=== PATIENT | male | born 1960 | race African-American/Black ===

== ENCOUNTER 2016-10-19 18:10 | Inpatient (IN) | payer MEDICARE, OTHER ==
[~2016-10-19] VITALS: Ht 182.9 cm; Wt 66.7 kg
[~2016-10-19 18:10] MED LIST: ASCO500C16 PO; Acetaminophen PO; BACL20TA PO; Docusate Sodium PO; Gabapentin PO; MAGN400O6 PO; MENT71OI TOP; OMEP20CA10 PO; OXYC30TA2 PO; PIPE3.379 IV; VANC1PLA9 IV; ZINC220C6 PO; Zolpidem Tartrate PO
[2016-10-19] MEDS ORDERED: ONDANSETRON 4 MG/2 ML VIAL IV ONE (18:45)
[2016-10-19] MEDS ORDERED: IV NORMAL SALINE 1000 ML BAG IV ONE (18:45)
[2016-10-19] MEDS ORDERED: HYDROMORPHONE 1 MG/1 ML DISP.SYRIN IV ONE (18:45)
[2016-10-19] MEDS ORDERED: HYDROMORPHONE 2 MG/1 ML DISP.SYRIN ONE ×2 (19:01→23:27)
[2016-10-19] MEDS ORDERED: ONDANSETRON 4 MG/2 ML VIAL ONE (19:01)
[2016-10-19 19:03] LABS: BASOPHILS # (AUTO) 0.1 K/uL (0.0-8.0); BASOPHILS % (AUTO) 0.7 % (0.0-2.0); EOSINOPHILS # (AUTO) 0.3 K/uL (0.0-0.7); EOSINOPHILS % (AUTO) 3.1 % (0.0-7.0); HEMATOCRIT 40.7 % (40-50); HEMOGLOBIN 13.2 G/DL (14.0-18.0); LYMPHOCYTES # (AUTO) 2.2 K/UL (0.8-4.8); LYMPHOCYTES % (AUTO) 26.5 % (20.5-51.5); MEAN CORPUSCULAR HEMOGLOBIN 29.5 UUG (27.0-31.0); MEAN CORPUSCULAR HGB CONC 32 g/dL (32.0-37.0); MEAN CORPUSCULAR VOLUME 91.3 FL (82.0-92.0); MONOCYTES # (AUTO) 0.7 K/UL (0.1-1.30); MONOCYTES % (AUTO) 8.1 % (0.0-11.0); NEUTROPHILS # (AUTO) 4.9 K/UL (1.8-8.9); NEUTROPHILS % (AUTO) 61.6 % (38.5-71.5); PLATELET COUNT (AUTO) 300 K/UL (150-450); RED BLOOD CELL COUNT(AUTO) 4.46 MIL/UL (4.7-6.1); WHITE BLOOD COUNT (AUTO) 8.2 K/UL (4.0-11.2)
--- NOTE | 2016-10-19 19:03 | NUR ---
PT IS IN ROOM #2B. DR WARD EVALUATED THE PT.
[2016-10-19 19:05] LABS: POTASSIUM 3.4 mmol/L (3.5-5.1)
[2016-10-19 19:10] LABS: BILIRUBIN,DIRECT 0.1 mg/dL (0.0-0.2); BILIRUBIN,TOTAL 0.2 mg/dL (0.2-1.0); TOTAL PROTEIN, SERUM 7.9 g/dL (6.4-8.2)
--- NOTE | 2016-10-19 19:10 | NUR ---
Patient c/o being itchy all over body, benadryl given as ordered. Patient will be admitted to m/s. pending lab results.
[2016-10-19] MEDS ORDERED: diphenhydrAMINE 50 MG/1 ML VIAL IV ONE (19:15)
--- NOTE | 2016-10-19 19:18 | NUR ---
Pt. admitted to m/s , under care of Dr. Merida Belongs List completed.
[2016-10-19] MEDS ORDERED: diphenhydrAMINE 50 MG/1 ML VIAL ONE (19:20)
--- NOTE | 2016-10-19 19:22 | NUR ---
patient is wheelchair bound, unable to move lower extremities.
--- NOTE | 2016-10-19 19:25 | NUR ---
Dr. Hernandez aware of lactic acid, not code sepsis per MD. Will monitor patient. No s/s noted at this time. VSS.
--- NOTE | 2016-10-19 19:26 | NUR ---
Dr. Hernandez and primary nurse Festus notified of pt's lactic acid level of 2.2
[2016-10-19] MEDS ORDERED: VANCOMYCIN IV 1,000 MG in IV DEXTROSE 5% 250 ML IV ONE (19:30)
[2016-10-19] MEDS ORDERED: PIPERACILLIN SODIUM/TAZOBACTAM 3.375 G in IV DEXTROSE 5% 50 ML IV ONE (19:30)
[2016-10-19] MEDS ORDERED: VANCOMYCIN 1000 MG VIAL ONE (19:34)
--- NOTE | 2016-10-19 19:52 | NUR ---
patient states that he wants to have a cigarette before getting admitted. explained that it is against policy for patient to go outside and smoke after IV narcotic medication. patient transferred self onto wheelchair and removed IV tubing and whelled himself to the door. spoke to MD that he wants to smoke just one cigarette. I accompanied patient outside to have one cigarette. patient wheeld himself back to room and transferred back to bed. IV medication connected and infusing at this time.
--- NOTE | 2016-10-19 20:09 | NUR ---
Report given to AUDIE Barakat. Patient will be admitted to room 222.
[2016-10-19] MEDS ORDERED: PIPERACILLIN/TAZOBACTAM/D5W 50 ML IV ONE (20:37)
[2016-10-19 21:04] VITALS: BP 163/137
--- NOTE | 2016-10-19 21:30 | NUR ---
RECEIVED PATIENT FROM ER. PATIENT IS AWAKE, ALERT AND ORIENTED X4. WHEELCHAIR BOUND DUE TO PARAPLEGIA FROM MULTIPLE SCLEROSIS PER PATIENT. UPPER EXTREMETIES FULL STRENGTH/MOBILITY AND SENSATION. LOWER EXTREMETIES IS BOTH FLACCID WITH RIGHT LOWER EXTREMITY LIMITED TO NO SENSATION AND LEFT LOWER EXTREMITY SENSATION OK. NO SHORTNESS OF BREATH, NO DISTRESS. LEFT BUTTOCK NOTED WITH 5 CM LENGTH X 2-3 CM WIDTH (SEE PHOTO) WOUND AND ABOUT 1 CM WOUND (SEE PHOTO) CLEANSED WITH NS, PAT DRY, APPLIED HYDROGEL IN GAUZE AND COVERED WITH MEPILEX AND SECURED WITH PAPER TAPE
[2016-10-19] MEDS ORDERED: [UNRECOGNIZED DRUG - OTHER] PO PRN (22:30)
[2016-10-19] MEDS ORDERED: Z GUARD REMEDY PASTE 57 GM TUBE TOP PRN (22:30)
[2016-10-19] MEDS ORDERED: MAGNESIUM HYDROXIDE 30 ML LIQUID UDC PO PRN ×2 (22:30)
[2016-10-19] MEDS ORDERED: Medication Not On Formulary EA ([Acetaminophen] (Tylenol) 650 MG) PO PRN (22:30)
[2016-10-19] MEDS: HYDROMORPHONE 2 MG/1 ML DISP.SYRIN IV PRN (23:18)
[2016-10-20] MEDS ORDERED: PIPERACILLIN/TAZOBACTAM/D5W 50 ML IV ONE (00:16)
[2016-10-20 04:20] VITALS: BP 87/48
[2016-10-20] MEDS ORDERED: HYDROMORPHONE 2 MG/1 ML DISP.SYRIN ONE (04:20)
[2016-10-20] MEDS: HYDROMORPHONE 2 MG/1 ML DISP.SYRIN IV PRN ×4 (04:41→21:12)
[2016-10-20 04:42] VITALS: BP 102/63
[2016-10-20] MEDS ORDERED: Medication Not On Formulary EA ([Gabapentin] (Neurontin) 300 MG) PO SCH (06:00)
[2016-10-20] MEDS ORDERED: Medication Not On Formulary EA (Oxycodone Hcl 30 MG) PO SCH (06:00)
[2016-10-20] MEDS: PIPERACILLIN/TAZOBACTAM/D5W 3.375 G in PREMIXED 1 EACH IV SCH ×3 (06:01→23:34)
[2016-10-20] MEDS ORDERED: ZOLPIDEM 5 MG TABLET PO PRN (07:30)
[2016-10-20 07:46] LABS: BASOPHILS % (AUTO) 0.7 % (0.0-2.0); EOSINOPHILS # (AUTO) 0.3 K/uL (0.0-0.7); EOSINOPHILS % (AUTO) 4.1 % (0.0-7.0); HEMATOCRIT 36.6 % (40-50); HEMOGLOBIN 12.2 G/DL (14.0-18.0); LYMPHOCYTES # (AUTO) 2.6 K/UL (0.8-4.8); LYMPHOCYTES % (AUTO) 40.8 % (20.5-51.5); MEAN CORPUSCULAR HEMOGLOBIN 30.6 UUG (27.0-31.0); MEAN CORPUSCULAR HGB CONC 33 g/dL (32.0-37.0); MEAN CORPUSCULAR VOLUME 91.8 FL (82.0-92.0); MONOCYTES # (AUTO) 0.7 K/UL (0.1-1.30); MONOCYTES % (AUTO) 10.5 % (0.0-11.0); NEUTROPHILS # (AUTO) 2.7 K/UL (1.8-8.9); NEUTROPHILS % (AUTO) 43.9 % (38.5-71.5); PLATELET COUNT (AUTO) 284 K/UL (150-450); RED BLOOD CELL COUNT(AUTO) 3.99 MIL/UL (4.7-6.1); WHITE BLOOD COUNT (AUTO) 6.3 K/UL (4.0-11.2)
[2016-10-20 07:56] LABS: BILIRUBIN,TOTAL 0.2 mg/dL (0.2-1.0); CREATININE 0.9 mg/dL (0.6-1.3); MAGNESIUM 1.8 mg/dL (1.8-2.4); PHOSPHOROUS 3.4 mg/dL (2.5-4.9)
[2016-10-20] MEDS: BACLOFEN 20 MG TABLET PO SCH ×3 (08:15→17:04)
[2016-10-20] MEDS: ASCORBIC ACID 500 MG TABLET PO SCH (08:15)
[2016-10-20] MEDS: ZINC SULFATE 220 MG CAPSULE PO SCH (08:15)
[2016-10-20] MEDS: PANTOPRAZOLE SODIUM 40 MG TABLET.DR PO SCH (08:15)
[2016-10-20] MEDS ORDERED: Medication Not On Formulary EA (Ascorbic Acid (Vitamin C CAPSULE) 500 MG) PO SCH (09:00)
[2016-10-20] MEDS: VANCOMYCIN IV 1 G in PREMIXED 0 EACH IV SCH ×2 (09:19→21:12)
[2016-10-20] MEDS: OXYCODONE HCL 20 MG TAB.SR.12H PO SCH ×3 (10:10→11:05)
[2016-10-20] MEDS ORDERED: OXYC60TA8 PO (10:12)
[2016-10-20 11:04] VITALS: BP 100/55
[2016-10-20] MEDS: NICOTINE 21 MG/24HR PATCH TD SCH (11:30)
[2016-10-20] MEDS: diphenhydrAMINE 50 MG/1 ML VIAL IV PRN (12:57)
--- NOTE | 2016-10-20 13:53 | NUR ---
CLINICAL PHARMACY NOTE: VANCOMYCIN PHARMACY TO DOSE Subjective: To start vancomycin in this 56 yo gentleman for indication of cellulitis Objective: height 182 cm weight 66 kg BUN 12 Scr 0.9 wbc 6.3 temp 98.5 1gm vanco given in ER 10/19 @1932 Assessment/Plan Will start regimen of vancomycin 1gm q13hr for expected trough of 14.68. First dose will be the dose given in ER, second and third doses will be given today at 0830 and 2130, respectively. Trough ordered before 4th scheduled dose, due tomorrow am at 1000. Will check level and readjust as appropriate. Will continue to monitor
[2016-10-20] MEDS: GABAPENTIN 300 MG CAPSULE PO SCH ×2 (14:24→21:12)
[2016-10-20 15:05] VITALS: BP 99/48
--- NOTE | 2016-10-20 16:21 | NUR ---
Patient initially wished to wait on taking oxycodone. Patient however now does not wish to take medication and too much time has passed since scheduled administration. Will return medication to patient. Med not given.
--- NOTE | 2016-10-20 19:35 | NUR ---
PT RECEIVED IN BED, AWAKE. A/OX4. ABLE TO MAKE NEEDS KNOWN. V/S STABLE. NO ACUTE DISTRESS NOTED. PT COMPLAINS OF BUTTOCK PAIN. WILL ADMINISTER PAIN MEDICATION ORDERED. ISOLATION PRECAUTION IN PLACE. SAFETY PRECAUTIONS IMPLEMENTED. WHEEL CHAIR CLOSE TO BEDSIDE. CALL LIGHT WITHIN REACH.
[2016-10-20 20:57] VITALS: BP 94/64
[2016-10-20] MEDS ORDERED: DOCUSATE SODIUM 250 MG CAPSULE PO SCH (21:00)
[2016-10-20] MEDS ORDERED: Medication Not On Formulary EA ([Docusate Sodium] (Colace) 200 MG) PO SCH (21:00)
[2016-10-20] MEDS: DOCUSATE SODIUM 100 MG CAPSULE PO SCH (21:12)
[2016-10-20] MEDS: LACTOBACILLUS RHAMNOSUS GG 1 EACH CAPSULE PO SCH (21:12)
[2016-10-21] MEDS: OXYCODONE HCL 20 MG TAB.SR.12H PO SCH ×3 (00:21→20:34)
[2016-10-21] MEDS: HYDROMORPHONE 2 MG/1 ML DISP.SYRIN IV PRN ×6 (00:56→22:45)
[2016-10-21 04:00] VITALS: BP 97/67
[2016-10-21] MEDS: ACETAMINOPHEN 325 MG TABLET PO PRN ×2 (04:44→04:46)
[2016-10-21] MEDS: PIPERACILLIN/TAZOBACTAM/D5W 3.375 G in PREMIXED 1 EACH IV SCH ×3 (05:02→22:44)
[2016-10-21 06:28] LABS: BASOPHILS % (AUTO) 0.4 % (0.0-2.0); EOSINOPHILS # (AUTO) 0.3 K/uL (0.0-0.7); EOSINOPHILS % (AUTO) 3.2 % (0.0-7.0); HEMATOCRIT 37.3 % (40-50); HEMOGLOBIN 12.5 G/DL (14.0-18.0); LYMPHOCYTES # (AUTO) 1.7 K/UL (0.8-4.8); LYMPHOCYTES % (AUTO) 21.5 % (20.5-51.5); MEAN CORPUSCULAR HEMOGLOBIN 30.7 UUG (27.0-31.0); MEAN CORPUSCULAR HGB CONC 34 g/dL (32.0-37.0); MEAN CORPUSCULAR VOLUME 91.5 FL (82.0-92.0); MONOCYTES # (AUTO) 0.5 K/UL (0.1-1.30); MONOCYTES % (AUTO) 6.3 % (0.0-11.0); NEUTROPHILS # (AUTO) 5.3 K/UL (1.8-8.9); NEUTROPHILS % (AUTO) 68.6 % (38.5-71.5); PLATELET COUNT (AUTO) 275 K/UL (150-450); RED BLOOD CELL COUNT(AUTO) 4.08 MIL/UL (4.7-6.1); WHITE BLOOD COUNT (AUTO) 7.8 K/UL (4.0-11.2)
[2016-10-21 06:38] LABS: CREATININE 0.9 mg/dL (0.6-1.3); MAGNESIUM 1.9 mg/dL (1.8-2.4); PHOSPHOROUS 2.9 mg/dL (2.5-4.9)
--- NOTE | 2016-10-21 06:57 | NUR ---
END OF SHIFT NOTES. PT SLEPT INTERMITTENTLY THROUGHOUT SHIFT. V/S STABLE. NO ACUTE DISTRESS NOTED. PT COMPLAINS OF BUTTOCKS PAIN. PAIN MEDICATION ADMINISTERED ORDERED. NEEDS ATTENDED. SAFETY MAINTAINED. CALL LIGHT WITHIN REACH.
[2016-10-21] MEDS: PANTOPRAZOLE SODIUM 40 MG TABLET.DR PO SCH (07:19)
[2016-10-21] MEDS: GABAPENTIN 300 MG CAPSULE PO SCH ×3 (07:19→22:42)
[2016-10-21] MEDS: BACLOFEN 20 MG TABLET PO SCH ×3 (08:18→18:20)
[2016-10-21] MEDS: ASCORBIC ACID 500 MG TABLET PO SCH (08:18)
[2016-10-21] MEDS: ZINC SULFATE 220 MG CAPSULE PO SCH (08:18)
[2016-10-21] MEDS: LACTOBACILLUS RHAMNOSUS GG 1 EACH CAPSULE PO SCH ×2 (08:18→20:31)
[2016-10-21] MEDS: NICOTINE 21 MG/24HR PATCH TD SCH (09:00)
--- NOTE | 2016-10-21 10:17 | NUR ---
CAP BLOCKER WOUND TREATMENT ORDERS CLARIFIED WITH MANAGER GALLERY. WOUND CARE WILL DEFER CONSULT AND WOUND TREATMENT PLAN TO SURGICAL TEAM AT THIS TIME. PATIENT WITH CURRENT ANDRA AT 17. ALL PRESSURE ULCER PREVENTION MEASURES NOTED TO BE IN PLACE AT THIS TIME.
[2016-10-21] MEDS ORDERED: SODIUM HYPOCHLORITE 0.125% 473 ML BOTTLE TP PRN (10:45)
[2016-10-21 11:16] VITALS: BP 103/58
[2016-10-21] MEDS: BOOST PLUS 237 ML LIQUID (VERY VANILLA) PO SCH ×2 (12:25→17:28)
[2016-10-21] MEDS: VANCOMYCIN IV 1 G in PREMIXED 0 EACH IV SCH ×2 (13:38→22:28)
[2016-10-21] MEDS: SODIUM HYPOCHLORITE 0.125% 473 ML BOTTLE TP SCH (13:39)
[2016-10-21 15:11] VITALS: BP 100/55
--- NOTE | 2016-10-21 15:34 | NUR ---
CLINICAL PHARMACY NOTE: VANCOMYCIN PHARMACY TO DOSE Subjective: To continue vancomycin in this 56 yo gentleman for indication of cellulitis Objective: height 182 cm weight 66 kg BUN 15 Scr 0.9 wbc 7.8 temp 98.1 Trough: 7.6 (today @1010 (drawn late)) Assessment/Plan Readjusted regimen to vancomycin 1gm q9hrs for new expected trough of 14.7. First dose due today at 1230. Trough ordered before 4th scheduled dose, due tomorrow am at 1500. Will check level and readjust as appropriate. Will continue to monitor
--- NOTE | 2016-10-21 16:41 | NUR ---
The patient will be discharged to [facility] [ ; [address] [place] [address]] once medically cleared. The patient chose the facility and is going to be there for short term rehab. Harmony from [facility] confirmed that they will be able to admit him once stable. CM/SW will follow-up.
--- NOTE | 2016-10-21 19:40 | NUR ---
PT RECEIVED IN BED, AWAKE. A/OX4. ABLE TO MAKE NEEDS KNOWN. V/S STABLE. NO ACUTE DISTRESS NOTED. PT STATES PAIN 6/10 AT THIS TIME. ISOLATION CONTINUED PRECAUTION. WOUND CULTURE LAB RESULTS PENDING. SAFETY MEASURES IMPLEMENTED. CALL LIGHT WITHIN REACH.
[2016-10-21 20:00] VITALS: BP 91/57
[2016-10-21] MEDS: DOCUSATE SODIUM 100 MG CAPSULE PO SCH (20:31)
[2016-10-22] MEDS: HYDROMORPHONE 2 MG/1 ML DISP.SYRIN IV PRN ×4 (04:12→20:15)
[2016-10-22 05:00] VITALS: BP 105/65
[2016-10-22] MEDS: VANCOMYCIN IV 1 G in PREMIXED 0 EACH IV SCH ×2 (05:49→17:36)
--- NOTE | 2016-10-22 06:40 | NUR ---
END OF SHIFT NOTES. PT SLEPT INTERMITTENTLY THROUGHOUT SHIFT. A/OX4. NEEDS ATTENDED. V/S STABLE. NO ACUTE DISTRESS NOTED. PAIN MANAGED. ISOLATION MAINTAINED. SAFETY MAINTAINED. CALL LIGHT WITHIN REACH.
[2016-10-22] MEDS: PANTOPRAZOLE SODIUM 40 MG TABLET.DR PO SCH (06:54)
[2016-10-22] MEDS: GABAPENTIN 300 MG CAPSULE PO SCH ×3 (06:54→22:25)
[2016-10-22] MEDS: PIPERACILLIN/TAZOBACTAM/D5W 3.375 G in PREMIXED 1 EACH IV SCH ×3 (06:54→22:24)
[2016-10-22] MEDS: BOOST PLUS 237 ML LIQUID (VERY VANILLA) PO SCH ×2 (08:51→17:36)
[2016-10-22] MEDS: OXYCODONE HCL 20 MG TAB.SR.12H PO SCH ×2 (08:52→22:24)
[2016-10-22] MEDS: NICOTINE 21 MG/24HR PATCH TD SCH ×2 (08:52→18:16)
[2016-10-22] MEDS: ZINC SULFATE 220 MG CAPSULE PO SCH (08:52)
[2016-10-22] MEDS: ASCORBIC ACID 500 MG TABLET PO SCH (08:52)
[2016-10-22] MEDS: BACLOFEN 20 MG TABLET PO SCH ×3 (08:52→17:36)
[2016-10-22] MEDS: SODIUM HYPOCHLORITE 0.125% 473 ML BOTTLE TP SCH (08:53)
[2016-10-22] MEDS ORDERED: PIPE3.379 IV (10:23)
[2016-10-22] MEDS ORDERED: ACID1TAB4 PO (10:23)
[2016-10-22] MEDS ORDERED: MULT1TAB73 PO (10:23)
[2016-10-22] MEDS ORDERED: DIPH25CA83 PO (10:23)
[2016-10-22] MEDS ORDERED: LACT-15 PO (10:23)
[2016-10-22] MEDS ORDERED: RXVAN IV (10:23)
[2016-10-22] MEDS ORDERED: SODI473S8 TP ×2 (10:23)
[2016-10-22] MEDS: LACTOBACILLUS RHAMNOSUS GG 1 EACH CAPSULE PO SCH ×2 (10:45→20:15)
[2016-10-22 11:06] VITALS: BP 105/69
--- NOTE | 2016-10-22 14:46 | NUR ---
Patient is requesting to take medications later. Sleeping at this time. Will give when patient wakes up. Patient requested not to be disturbed.
[2016-10-22 15:17] VITALS: BP 104/68
--- NOTE | 2016-10-22 15:47 | NUR ---
CLINICAL PHARMACY NOTE: VANCOMYCIN PHARMACY TO DOSE Subjective: To continue vancomycin in this 56 yo gentleman for indication of cellulitis Objective: height 182 cm weight 66 kg BUN 15 (8/) Scr 0.9(8/) wbc 7.8 (8/) temp 98.2 ) Assessment/Plan Continue vancomycin 1gm q9hrs for new expected trough of 14.7. Third dose given today at 0549. Trough ordered before 4th scheduled dose, due today at 1500. Will check level and readjust as appropriate. Will continue to monitor Addendum: 10/22/16 at 1639 by LEROY ESCALERA VANCOMYCIN TROUGH 12.1, WILL INCREASE DOSE TO 1 GRAM EVERY 8HRS(FIRST DOSE AT 1630) AND DRAW TROUGH BY 4TH DOSE(ORDERED FOR TOMORROW AT 1600).
[2016-10-22 20:31] VITALS: BP 100/61
[2016-10-22] MEDS: DOCUSATE SODIUM 100 MG CAPSULE PO SCH (20:35)
[2016-10-23] MEDS: VANCOMYCIN IV 1 G in PREMIXED 0 EACH IV SCH ×3 (00:25→17:04)
[2016-10-23] MEDS: HYDROMORPHONE 2 MG/1 ML DISP.SYRIN IV PRN ×5 (00:25→21:29)
[2016-10-23] MEDS: diphenhydrAMINE 50 MG/1 ML VIAL IV PRN (00:38)
[2016-10-23] MEDS: GABAPENTIN 300 MG CAPSULE PO SCH ×3 (05:01→21:30)
[2016-10-23] MEDS: PIPERACILLIN/TAZOBACTAM/D5W 3.375 G in PREMIXED 1 EACH IV SCH ×3 (05:01→21:29)
[2016-10-23 05:35] VITALS: BP 99/68
--- NOTE | 2016-10-23 05:35 | NUR ---
PT'S IV SITE INFILTRATED. IV ZOSYN STILL RUNNING WITH 20ML LEFT TO INFUSE. PT REFUSED TO HAVE IV REINSERTED AND COMPLETE REMAINING ZOSYN IVPB. THIRD TIME IV SITE NOTED TO BE INFILTRATED DUE TO PATIENT CONSTANTLY MOVING/TRANSFERRING FROM BED TO WHEELCHAIR. PT STATED "I DON'T WANT TO BE POKED AGAIN AND THEN MY VEINS NOT WORKING, AND THEN GET REPOKED AGAIN. I'LL TAKE MY IV AT 9 O'CLOCK". DISCUSSED WITH PATIENT REGARDING RISKS/BENEFITS OF COMPLETING ANTIBIOTIC TREATMENT, PT VERBALIZED UNDERSTANDING. WILL ENDORSE TO THE DAY SHIFT RN.
--- NOTE | 2016-10-23 06:06 | NUR ---
PT SLEPT INTERMITTENTLY, IN NO ACUTE DISTRESS. PT GETS OUT OF BED FREQUENTLY, TRANSFERS TO WHEELCHAIR INDEPENDENTLY. PT'S IV PULLED OUT SEVERAL TIMES DURING THE SHIFT DUE TO PT CONSTANTLY MOVING/TRANSFERRING FROM BED TO WHEELCHAIR. DISCUSSED TO PATIENT REGARDING SAFETY MEASURES AND FALL RISK, PT VERBALIZED UNDERSTANDING. IV ANTIBIOTICS ADMINISTERED ORDERED, NO ADVERSE REACTION NOTED. PAIN MANAGEMENT ORDERED. CALL LIGHT WITHIN REACH, WILL CONTINUE TO MONITOR.
[2016-10-23] MEDS: PANTOPRAZOLE SODIUM 40 MG TABLET.DR PO SCH (06:31)
[2016-10-23] MEDS: BOOST PLUS 237 ML LIQUID (VERY VANILLA) PO SCH ×2 (08:22→17:05)
[2016-10-23] MEDS: ASCORBIC ACID 500 MG TABLET PO SCH (09:33)
[2016-10-23] MEDS: LACTOBACILLUS RHAMNOSUS GG 1 EACH CAPSULE PO SCH ×2 (09:33→20:09)
[2016-10-23] MEDS: ZINC SULFATE 220 MG CAPSULE PO SCH (09:33)
[2016-10-23] MEDS: BACLOFEN 20 MG TABLET PO SCH ×3 (09:33→17:04)
[2016-10-23] MEDS: SODIUM HYPOCHLORITE 0.125% 473 ML BOTTLE TP SCH (09:34)
--- NOTE | 2016-10-23 11:08 | NUR ---
PT REFUSED TO HAVE MORNING OXYCODONE "I WANT TO HAVE DILAUDID IV NOW, I WILL HAVE OXYCODONE LATER ON"
[2016-10-23 12:10] VITALS: BP 92/60
[2016-10-23 13:47] VITALS: BP 103/59
--- NOTE | 2016-10-23 15:28 | NUR ---
PER DR. WOLF LEDEZMA TO GIVE MORNING OXYCODONE TO THE PT.
[2016-10-23] MEDS: OXYCODONE HCL 20 MG TAB.SR.12H PO SCH ×2 (15:31→21:00)
--- NOTE | 2016-10-23 17:00 | NUR ---
CLINICAL PHARMACY NOTE: VANCOMYCIN PHARMACY TO DOSE Subjective: To continue vancomycin in this 56 yo gentleman for indication of cellulitis Objective: height 182 cm weight 66 kg BUN 15 (8/4) Scr 0.9(8/4) wbc 7.8 (8/4) temp 98.2 Vanco trough level: 18 Assessment/Plan Since vancomycin trough level is within therapeutic range of 15-20 mcg/ml, will continue the same dose of vancomycin 1gm IVPB q9hrs for today. Plan to repeat level within a couple of days if needed to ensure proper therapeutic level. Will continue to monitor
[2016-10-23 17:32] VITALS: BP 110/59
--- NOTE | 2016-10-23 18:37 | NUR ---
WOUND CARE IS REFUSED BY THE PT "I NEED TO GO, THEY CAN DO IT LATER"
--- NOTE | 2016-10-23 19:05 | NUR ---
PT IS LAYING IN BED COMFORTABLY. NO PAIN NOTED. ALL SAFETY NEEDS ARE MET. PT REMOVED HIS IV. NO S/S OF BLEEDING. NO S/S OF RESPIRATORY DISTRESS NOTED. WOUND CARE WAS REFUSED BY THE PT, ADVISED THE NOC NURSE. ALL SAFETY NEEDS ARE MET.
--- NOTE | 2016-10-23 19:30 | NUR ---
RECEIVED PATIENT LAYING COMFORTABLY IN BED. HOB ELEVATED. A&O X'S 4. NO ACUTE DISTRESS NOTED. NOTED LOWER EXTREMITIES SEVERE WEAKNESS. PARAPLEGIC. NO IV SITE. WILL ATTEMPT TO RESTART AN IV. SAFETY INITIATED. CALL LIGHT WITHIN REACH. WILL CONTINUE TO MONITOR.
[2016-10-23 20:00] VITALS: BP_SYST 100; BP_SYST 94; BP_DIAS 67; BP_DIAS 74
[2016-10-23] MEDS: DOCUSATE SODIUM 100 MG CAPSULE PO SCH (20:09)
[2016-10-23 20:30] VITALS: BP 100/74
[2016-10-24] MEDS: VANCOMYCIN IV 1 G in PREMIXED 0 EACH IV SCH ×2 (01:48→09:03)
--- NOTE | 2016-10-24 02:00 | NUR ---
APPLIED HYDROGEL AND MEPILEX ON PATIENT'S LEFT BUTTOCK SKIN TEAR.
[2016-10-24] MEDS: HYDROMORPHONE 2 MG/1 ML DISP.SYRIN IV PRN ×4 (02:10→14:25)
[2016-10-24 05:13] VITALS: BP 97/60
[2016-10-24] MEDS: PIPERACILLIN/TAZOBACTAM/D5W 3.375 G in PREMIXED 1 EACH IV SCH ×2 (05:39→13:33)
[2016-10-24] MEDS: GABAPENTIN 300 MG CAPSULE PO SCH ×2 (06:11→13:20)
[2016-10-24] MEDS: PANTOPRAZOLE SODIUM 40 MG TABLET.DR PO SCH (06:11)
--- NOTE | 2016-10-24 06:33 | NUR ---
PATIENT SLEPT INTERMITTENTLY T/O SHIFT. NO ACUTE DISTRESS NOTED. COMFORT AND SAFETY MAINTAINED T/O SHIFT. PATIENT IS WHEELCHAIR BOUND.GOES DOWNSTAIRS TO SMOKE.FREQUENTLY ASKS FOR PAIN MED. MEDS GIVEN. STATED RELIEF.ALL NEEDS MET. WOUND CARE PROVIDED TODAY.
[2016-10-24] MEDS: BOOST PLUS 237 ML LIQUID (VERY VANILLA) PO SCH (08:38)
[2016-10-24] MEDS: LACTOBACILLUS RHAMNOSUS GG 1 EACH CAPSULE PO SCH (09:02)
[2016-10-24] MEDS: BACLOFEN 20 MG TABLET PO SCH ×2 (09:02→13:20)
[2016-10-24] MEDS: ASCORBIC ACID 500 MG TABLET PO SCH (09:02)
[2016-10-24] MEDS: ZINC SULFATE 220 MG CAPSULE PO SCH (09:02)
[2016-10-24] MEDS: OXYCODONE HCL 20 MG TAB.SR.12H PO SCH (09:02)
[2016-10-24] MEDS: NICOTINE 21 MG/24HR PATCH TD SCH (09:03)
[2016-10-24] MEDS: SODIUM HYPOCHLORITE 0.125% 473 ML BOTTLE TP SCH (09:04)
[2016-10-24 10:41] VITALS: BP 123/72
[2016-10-24] MEDS: diphenhydrAMINE 50 MG/1 ML VIAL IV PRN (10:45)
--- NOTE | 2016-10-24 12:15 | NUR ---
THIS RECORDER SPOKE WITH AUNDREA DATA SECURITY ANALYST AT [facility], , STATES THEY WILL ACCEPT SOHAM EVELYN BACK TO THERE FACILITY
--- NOTE | 2016-10-24 12:22 | NUR ---
PER PT "I HAD BOWEL MOVEMENT YESTERDAY". ADVISED THE FACILITY
[2016-10-24 12:33] VITALS: BP 120/72
--- NOTE | 2016-10-24 13:47 | NUR ---
WOUND CARE IS DONE, PICTURES TAKEN ONLY OF THE LEFT BUTTOCK. PER PT "THE REST IS ONLY SCARS, ITS HEALED ALREADY". PT REFUSED TO TAKE PICTURES OF THE REST WOUNDS. PER DR. WOLF LEDEZMA TO GIVE PAIN MEDICATION 1.5MG DILAUDID IV "BEFORE PT LEAVES" VIA AMBULANCE.
--- NOTE | 2016-10-24 14:37 | NUR ---
ADMINISTERED PAIN MEDICATIONS TO THE PT "OK" PER DR. BLOOM TO GIVE DILAUDID 1.5MG. ADMINISTERED AT 1425. DISCHARGE NOTE: PT IS READY TO BE D/C, IV IS LEFT DUE TO PT CONTINUING IV MEDS AT THE FACILITY. REPORT IS GIVEN TO AN. NO S/S OF RESPIRATORY DISTRESS NOTED. NO S/S OF BLEEDING. V/A WNL.
== END 2016-10-24 14:30 | DRG 579 ==
LOC: ER 18:11 → MED 20:31
PROVIDERS: ADMIT Internal Medicine; ATTEND Internal Medicine
PROC: 0KBP0ZZ Excision of Left Hip Muscle, Open Approach (ICD-10-PCS; principal; 2016-10-21)
DX: L89.324 Pressure ulcer of left buttock, stage 4 (principal); E43 Unspecified severe protein-calorie malnutrition; E87.2 Acidosis; Z68.1 Body mass index [BMI] 19.9 or less, adult; F11.20 Opioid dependence, uncomplicated; G82.20 Paraplegia, unspecified; D68.59 Other primary thrombophilia; L08.9 Local infection of the skin and subcutaneous tissue, unspecified; G35 Multiple sclerosis; F12.90 Cannabis use, unspecified, uncomplicated; F17.210 Nicotine dependence, cigarettes, uncomplicated; D63.8 Anemia in other chronic diseases classified elsewhere; G89.4 Chronic pain syndrome; M19.012 Primary osteoarthritis, left shoulder; M19.011 Primary osteoarthritis, right shoulder; G40.909 Epilepsy, unspecified, not intractable, without status epilepticus; L89.319 Pressure ulcer of right buttock, unspecified stage; Z86.14 Personal history of Methicillin resistant Staphylococcus aureus infection; Z87.440 Personal history of urinary (tract) infections; N31.9 Neuromuscular dysfunction of bladder, unspecified; Z99.3 Dependence on wheelchair; Z79.899 Other long term (current) drug therapy; M19.90 Unspecified osteoarthritis, unspecified site; Z98.890 Other specified postprocedural states
CPT/HCPCS: 36415; 71010; 83605; 83690; 83735; 84100; 85025; 85651; 86140; 87040; 87070; 93005; 97110; 97161; A4217; A4663; J1170; J1200; J2405; J2543; J3370; J7040; J7060

== ENCOUNTER 2018-01-22 15:26 | Inpatient (IN) | payer MEDICARE, OTHER ==
[~2018-01-22] VITALS: Ht 185.4 cm; Wt 67.7 kg
[~2018-01-22 15:26] MED LIST changes: +ACID1TAB4 PO; +DIPH25CA83 PO; +LACT-15 PO; +MULT1TAB73 PO; -OXYC30TA2 PO; +OXYC60TA8 PO; +RXVAN IV; +SODI473S8 TP; -VANC1PLA9 IV
[2018-01-22] MEDS ORDERED: HYDR2TAB4 PO (17:38)
[2018-01-22] MEDS ORDERED: ENSURE PLUS (17:38)
[2018-01-22] MEDS ORDERED: OXYC30TA2 PO (17:38)
[2018-01-22] MEDS ORDERED: BACL20TA PO (17:38)
[2018-01-22] MEDS ORDERED: GABA300C PO (17:38)
[2018-01-22] MEDS ORDERED: PIPERACILLIN/TAZOBACTAM/D5W 50 ML IV ONE (17:45)
[2018-01-22] MEDS ORDERED: VANCOMYCIN IV 1,000 MG in IV DEXTROSE 5% 250 ML IV ONE (17:45)
[2018-01-22] MEDS ORDERED: PIPERACILLIN SODIUM/TAZOBACTAM 3.375 G in IV DEXTROSE 5% 50 ML IV ONE (17:45)
[2018-01-22] MEDS ORDERED: VANCOMYCIN IV 200 ML ONE (17:45)
[2018-01-22 17:54] LABS: BASOPHILS % (AUTO) 0.7 % (0.0-2.0); EOSINOPHILS # (AUTO) 0.2 K/uL (0.0-0.7); EOSINOPHILS % (AUTO) 4.1 % (0.0-7.0); HEMATOCRIT 41.3 % (36.7-47.1); HEMOGLOBIN 14.1 g/dL (12.5-16.3); MEAN CORPUSCULAR HEMOGLOBIN 32.9 uug (23.8-33.4); MEAN CORPUSCULAR HGB CONC 34 g/dL (32.5-36.3); MEAN CORPUSCULAR VOLUME 96.6 fL (73.0-96.2); MONOCYTES # (AUTO) 0.4 K/uL (2.0-10.0); MONOCYTES % (AUTO) 6.1 % (0.0-11.0); NEUTROPHILS # (AUTO) 3.4 K/uL (1.8-8.9); NEUTROPHILS % (AUTO) 56.1 % (38.5-71.5); PLATELET COUNT (AUTO) 250 K/uL (152-348); RED BLOOD CELL COUNT(AUTO) 4.28 MIL/uL (4.06-5.63)
[2018-01-22 18:10] LABS: ALANINE AMINOTRANSFERASE 18 U/L (16-63); ALKALINE PHOSPHATASE 120 U/L (50-136); ASPARTATE AMINOTRANSFERASE 11 U/L (15-37); BILIRUBIN,DIRECT < 0.1 mg/dL (0.0-0.2); BILIRUBIN,TOTAL 0.2 mg/dL (0.2-1.0); CARBON DIOXIDE 27 mmol/L (21-32); CHLORIDE 107 mmol/L (98-107); CREATININE 0.9 mg/dL (0.6-1.3); GLUCOSE 103 mg/dL (74-106); POTASSIUM 3.8 mmol/L (3.5-5.1); TOTAL PROTEIN, SERUM 7.7 g/dL (6.4-8.2); UREA NITROGEN, BLOOD 15 mg/dL (7-18)
--- NOTE | 2018-01-22 19:08 | NUR ---
RECEIVED SHIFT REPORT FROM AUDIE MENJIVAR. RECEIVED PT SITTING IN W/C. VSS, PT C/O SACRAL WOUND PAIN. PT DENIES C/P, SOB, N/V/D, HEADACHE, DIZZINESS.
[2018-01-22] MEDS ORDERED: HYDROMORPHONE 1 MG/1 ML DISP.SYRIN ONE (19:14)
[2018-01-22] MEDS ORDERED: ONDANSETRON 4 MG/2 ML VIAL ONE (19:14)
[2018-01-22] MEDS ORDERED: ONDANSETRON 4 MG/2 ML VIAL IV ONE (19:15)
[2018-01-22] MEDS ORDERED: HYDROMORPHONE 1 MG/1 ML DISP.SYRIN IV ONE (19:15)
--- NOTE | 2018-01-22 20:00 | NUR ---
Pt. admitted to M/S, under care of Dr. CHAVEZ. Belongs List completed.
--- NOTE | 2018-01-22 20:20 | NUR ---
IN FROM ER VIA WHEELCHAIR, ADMITTED 57 YEAR OLD MALE WITH ADMITTING DX OF INFECTED WOUND. AAOX4, NO SIGNS OF ACUTE DISTRESS NOTED AT THIS TIME. IV SITE, PATENT AND INTACT. ROUTINE ADMISSION DONE. PLAN OF CARE INITIATED. SAFETY MEASURES INITIATED, PT BELONGINGS AND CALL WOLFF WITHIN REACH. Addendum: 01/23/18 at 0211 by ERIKA FRASER RN PT VERBALIZED SMOKING DEPENDENCY, EDUCATION ON SMOKING CESSATION GIVEN, VERBALIZED UNDERSTANDING. MADE AWARE, ORDER RECEIVED OF NICOTINE PATCH 14MG Q DAILY. ORDER READ BACK AND CARRIED OUT.
[2018-01-22] MEDS ORDERED: THERAHONEY GEL 1.5 OZ TUBE TOP PRN (20:45)
[2018-01-22] MEDS ORDERED: Medication Not On Formulary EA ([Acetaminophen] 650 MG) PO PRN (20:45)
[2018-01-22] MEDS ORDERED: MAGNESIUM HYDROXIDE 30 ML LIQUID UDC PO PRN (20:45)
[2018-01-22] MEDS ORDERED: GABAPENTIN 300 MG CAPSULE PO PRN (20:45)
[2018-01-22] MEDS ORDERED: ZOLPIDEM TARTRATE 5 MG PO PRN (20:45)
[2018-01-22] MEDS ORDERED: ONDANSETRON 4 MG/2 ML VIAL IV PRN (21:00)
[2018-01-22] MEDS ORDERED: DOCUSATE SODIUM 200 MG PO SCH (21:00)
[2018-01-22] MEDS ORDERED: ZOLPIDEM 5 MG TABLET PO PRN (21:00)
[2018-01-22] MEDS ORDERED: Z GUARD REMEDY PASTE 57 GM TUBE TOP PRN (21:00)
[2018-01-22] MEDS ORDERED: ACETAMINOPHEN 325 MG TABLET PO PRN (21:00)
[2018-01-22] MEDS: IV NS 1000 ML 1,000 ML IV PRN (21:13)
[2018-01-22] MEDS: DOCUSATE SODIUM 100 MG CAPSULE PO SCH (21:40)
[2018-01-23 04:00] VITALS: BP 112/67
[2018-01-23] MEDS: HYDROMORPHONE 2 MG/1 ML DISP.SYRIN IV PRN ×5 (04:35→20:52)
[2018-01-23] MEDS ORDERED: PIPERACILLIN/TAZOBACTAM/D5W 50 ML IV ONE (05:24)
[2018-01-23] MEDS ORDERED: PIPERACILLIN/TAZOBACTAM/D5W 3.375 G in PREMIXED 1 EACH IV SCH (06:00)
[2018-01-23] MEDS ORDERED: VANCOMYCIN IV 200 ML IV SCH (06:00)
[2018-01-23] MEDS: PANTOPRAZOLE SODIUM 40 MG TABLET.DR PO SCH (06:23)
[2018-01-23 06:50] LABS: BASOPHILS % (AUTO) 0.6 % (0.0-2.0); EOSINOPHILS % (AUTO) 4.1 % (0.0-7.0); HEMATOCRIT 37.4 % (36.7-47.1); HEMOGLOBIN 12.8 g/dL (12.5-16.3); LYMPHOCYTES % (AUTO) 40.6 % (20.5-51.5); MEAN CORPUSCULAR HEMOGLOBIN 33.1 uug (23.8-33.4); MEAN CORPUSCULAR HGB CONC 34 g/dL (32.5-36.3); NEUTROPHILS % (AUTO) 44.7 % (38.5-71.5); PLATELET COUNT (AUTO) 221 K/uL (152-348); RED BLOOD CELL COUNT(AUTO) 3.86 MIL/uL (4.06-5.63); WHITE BLOOD COUNT (AUTO) 5.4 K/uL (3.6-10.2)
--- NOTE | 2018-01-23 06:50 | NUR ---
PT RESTING COMFORTABLY ON BED. NO SIGNS OF DISCOMFORT AT THIS TIME. IV SITE ON RFA, PATENT AND INTACT. EDUCATED PT ON FREQUENT REPOSITIONING FOR SKIN CARE. ALL NEEDS ATTENDED AND MET. SAFE ENVIRONMENT MAINTAINED AT ALL TIMES, CALL WOLFF WITHIN REACH
[2018-01-23 06:51] LABS: EOSINOPHILS # (AUTO) 0.2 K/uL (0.0-0.7); LYMPHOCYTES # (AUTO) 2.2 K/uL (20.0-40.0); MONOCYTES # (AUTO) 0.5 K/uL (2.0-10.0); NEUTROPHILS # (AUTO) 2.4 K/uL (1.8-8.9)
[2018-01-23 07:50] LABS: BILIRUBIN,TOTAL 0.2 mg/dL (0.2-1.0); CREATININE 0.9 mg/dL (0.6-1.3); MAGNESIUM 1.7 mg/dL (1.8-2.4); PHOSPHOROUS 3.3 mg/dL (2.5-4.9); POTASSIUM 4.3 mmol/L (3.5-5.1); TOTAL PROTEIN, SERUM 6.8 g/dL (6.4-8.2)
[2018-01-23] MEDS: ENSURE ENLIVE (VAN) 240 ML LIQUID PO SCH ×2 (08:00→17:00)
--- NOTE | 2018-01-23 08:00 | NUR ---
awake alert cooperate well no sob or pain ON FALL PRECAUTION BED ALARM ON AND CALL LIGHT IN REACH
[2018-01-23] MEDS: BACLOFEN 20 MG TABLET PO SCH ×3 (08:24→17:18)
[2018-01-23] MEDS: ACIDOPHILUS/BULGARICUS CHEW TAB PO SCH ×2 (08:24→20:51)
[2018-01-23] MEDS: ASCORBIC ACID 500 MG TABLET PO SCH (08:24)
[2018-01-23] MEDS: MULTIVITAMINS,THERAPEUTIC TABLET PO SCH (08:24)
[2018-01-23] MEDS: ZINC SULFATE 220 MG CAPSULE PO SCH (08:24)
[2018-01-23] MEDS: NICOTINE 14 MG/24HR PATCH TD SCH (08:24)
--- NOTE | 2018-01-23 08:42 | NUR ---
CLINICAL PHARMACY NOTE-VANCOMYCIN DOSING PER PHARMACY S: To start vancomycin dosing on this patient for recurrent cellulitis(also on zosyn) O: BUN/scr 14/0.9 WBC 5.4 Temp 98.1 Ht 185.42cm Wt 67.73kg A/P: Patient had 1 gram in ER last night at 1745. Will continue 1 gram every 8hrs (first dose today at 1000) and draw trough by 4th dose(not ordered yet, estimated trough around 18 based on last admission result). Will follow daily. Addendum: 01/23/18 at 1244 by LEROY MAYERS ADM TROUGH IS ON ORDER FOR TOMORROW AT 0930 BEFORE 4TH DOSE.
[2018-01-23] MEDS ORDERED: Medication Not On Formulary EA (Ascorbic Acid (Vitamin C CAPSULE) 500 MG) PO SCH (09:00)
[2018-01-23] MEDS ORDERED: Medication Not On Formulary EA (Multivitamins (Multivitamin) 1 EACH) PO SCH (09:00)
--- NOTE | 2018-01-23 09:00 | NUR ---
TO S RAY FOR CT PELVIS W/O CONTRAST VIA W/C
--- NOTE | 2018-01-23 09:30 | NUR ---
BACK TO ROOM RESTING STATE PAIN MED HELP TO RELIEF PAIN
[2018-01-23] MEDS: VANCOMYCIN IV 1 G in PREMIXED 0 EACH IV SCH ×2 (10:30→18:24)
[2018-01-23 11:21] VITALS: BP 117/62
--- NOTE | 2018-01-23 12:41 | NUR ---
WOUND CARE CONSULT: PT PRESENTS WITH STAGE 4 ULCER TO LEFT BUTTOCK WITH SURROUNDING SCAR, RT BUTTOCK SCAR AND SACRAL SCAR, PRESENT ON ADMISSION. PT ON FIRST STEP [facility]. ALL SKIN PROTECTION AND WOUND CARE RECOMMENDATIONS DISCUSSED WITH NURSING STAFF. RECOMMEND SURGICAL CONSULT. WILL SEE PRN. GOLDMAN IN AGREEMENT WITH PLAN OF CARE. Addendum: 01/23/18 at 1244 by REHAN ALANIS RN Amended: Links added.
[2018-01-23 15:23] VITALS: BP 105/66
[2018-01-23] MEDS: PIPERACILLIN/TAZOBACTAM/D5W 3.375 G in PREMIXED 1 EACH IV SCH ×2 (15:23→22:21)
[2018-01-23] MEDS: diphenhydrAMINE 25 MG CAP PO PRN (15:23)
[2018-01-23] MEDS: MAGNESIUM SULFATE/D5W 100 ML IV SCH ×2 (15:24→17:18)
--- NOTE | 2018-01-23 17:30 | NUR ---
STABLE HEMODYNAMIC STATUS PAIN UNDER CONTROL SAFETY MEASURE PROVIDED CALL LIGHT IN REACH
--- NOTE | 2018-01-23 20:00 | NUR ---
Pt noted to be AAO x 3, independent, no s/s of acute distress. Pt made aware of plan of care. Safe environment implemented. Call light within reach.
[2018-01-23 20:24] VITALS: BP 111/73
[2018-01-23] MEDS: DOCUSATE SODIUM 100 MG CAPSULE PO SCH (20:50)
[2018-01-23] MEDS: IV NS 1000 ML 1,000 ML IV PRN (20:55)
[2018-01-24] MEDS: HYDROMORPHONE 2 MG/1 ML DISP.SYRIN IV PRN ×5 (02:02→20:18)
[2018-01-24] MEDS: VANCOMYCIN IV 1 G in PREMIXED 0 EACH IV SCH ×3 (02:03→18:10)
[2018-01-24 05:43] VITALS: BP 130/65
[2018-01-24] MEDS: PIPERACILLIN/TAZOBACTAM/D5W 3.375 G in PREMIXED 1 EACH IV SCH ×3 (06:19→21:23)
[2018-01-24] MEDS: PANTOPRAZOLE SODIUM 40 MG TABLET.DR PO SCH (06:19)
--- NOTE | 2018-01-24 06:42 | NUR ---
Pt refused to have wound pictures taken. No s/s of acute distress noted at this time. Pain management provided as ordered. Safe environment implemented.
[2018-01-24] MEDS: ENSURE ENLIVE (VAN) 240 ML LIQUID PO SCH ×2 (08:00→17:29)
--- NOTE | 2018-01-24 08:00 | NUR ---
AWAKE ALERT ORTX4 COOPERATE WELL NO PAIN OR SOB CALL LIGHT WITHIN REACH
[2018-01-24 08:41] LABS: CREATININE 0.9 mg/dL (0.6-1.3); MAGNESIUM 2.3 mg/dL (1.8-2.4); POTASSIUM 4.3 mmol/L (3.5-5.1)
[2018-01-24] MEDS: ACIDOPHILUS/BULGARICUS CHEW TAB PO SCH ×3 (09:00→20:17)
[2018-01-24] MEDS: BACLOFEN 20 MG TABLET PO SCH ×3 (09:23→17:12)
[2018-01-24] MEDS: MULTIVITAMINS,THERAPEUTIC TABLET PO SCH (09:25)
[2018-01-24] MEDS: NICOTINE 14 MG/24HR PATCH TD SCH (09:25)
[2018-01-24] MEDS: ZINC SULFATE 220 MG CAPSULE PO SCH (09:25)
[2018-01-24] MEDS: ASCORBIC ACID 500 MG TABLET PO SCH (09:25)
--- NOTE | 2018-01-24 10:00 | NUR ---
REFUSED TO HAVE DSG CHANGE AT LEFT BUTTOCK
[2018-01-24] MEDS: diphenhydrAMINE 25 MG CAP PO PRN (10:57)
--- NOTE | 2018-01-24 11:11 | NUR ---
CLINICAL PHARMACY NOTE-VANCOMYCIN DOSING PER PHARMACY S: To continue vancomycin dosing on this patient for recurrent cellulitis(also on zosyn) O: BUN/scr 10/0.9 WBC 5.4 (01/23) Temp 98 Ht 185.42cm Wt 67.73kg Trough today at 0930 15.2 A/P: As trough is within range, will continue regimen of 1gm q8h for today. If renal function or condition were to become unstable, will reorder labs/reshedule regimen as appropriate. Will follow
[2018-01-24 11:20] VITALS: BP 105/63
--- NOTE | 2018-01-24 14:00 | NUR ---
IV SITE INFILTRATE RESTART A NEW ONE ON LT HAND #[id number]
[2018-01-24 15:14] VITALS: BP 111/72
--- NOTE | 2018-01-24 17:30 | NUR ---
IV OUT AT THIS TIME ,WILL RESTART ANOTHER ONE LATER AFTER DINNER
--- NOTE | 2018-01-24 17:45 | NUR ---
STABLE HEMODYNAMIC STATUS ,PAIN UNDER CONTROL NO ACUTE DISTRESS SAFETY MEASURE PROVIDED AND CALL LIGHT IN REACH
[2018-01-24 19:54] VITALS: BP 124/68
--- NOTE | 2018-01-24 20:00 | NUR ---
Pt alert and oriented x 3, in no acute distress. Safe environment implemented.
[2018-01-24] MEDS: DOCUSATE SODIUM 100 MG CAPSULE PO SCH (20:17)
[2018-01-25] MEDS: VANCOMYCIN IV 1 G in PREMIXED 0 EACH IV SCH ×2 (01:03→10:08)
[2018-01-25] MEDS: HYDROMORPHONE 2 MG/1 ML DISP.SYRIN IV PRN ×4 (01:03→14:06)
[2018-01-25 05:17] VITALS: BP 101/46
--- NOTE | 2018-01-25 06:00 | NUR ---
PAIN MANAGEMENT PROVIDED ORDERED. WOUND CARE DONE. SAFE ENVIRONMENT IMPLEMENTED.
[2018-01-25] MEDS: PIPERACILLIN/TAZOBACTAM/D5W 3.375 G in PREMIXED 1 EACH IV SCH (06:08)
[2018-01-25] MEDS: PANTOPRAZOLE SODIUM 40 MG TABLET.DR PO SCH (06:18)
[2018-01-25] MEDS: MULTIVITAMINS,THERAPEUTIC TABLET PO SCH (08:27)
[2018-01-25] MEDS: ACIDOPHILUS/BULGARICUS CHEW TAB PO SCH (08:27)
[2018-01-25] MEDS: BACLOFEN 20 MG TABLET PO SCH ×2 (08:28→12:52)
[2018-01-25] MEDS: NICOTINE 14 MG/24HR PATCH TD SCH (08:28)
[2018-01-25] MEDS: ZINC SULFATE 220 MG CAPSULE PO SCH (08:28)
[2018-01-25] MEDS: ASCORBIC ACID 500 MG TABLET PO SCH (08:28)
[2018-01-25] MEDS: ENSURE ENLIVE (VAN) 240 ML LIQUID PO SCH (08:29)
[2018-01-25 11:03] VITALS: BP 120/69
--- NOTE | 2018-01-25 11:20 | NUR ---
SBAR report received, board updated, received Pt AAOx4 . Pt assessed, no acute distress reported pain of 7/10 relieved to a tolerable 5/10 from PRN Dilaudid, provided per MD orders. Pt assisted to reposition. IV flushed, patent, and intact. All safety and comfort measures in place. Wound care provided as ordered. Pt compliant with routine morning medications swallowing them whole. Call light within reach. Bed in locked and lowest position with side rails up x2. Order for discharge received, will work on completing paperwork. Will continue to monitor.
--- NOTE | 2018-01-25 12:39 | NUR ---
CLINICAL PHARMACY NOTE-VANCOMYCIN DOSING PER PHARMACY S: To continue vancomycin dosing on this patient for recurrent cellulitis(also on zosyn) O: BUN/scr 10/0.9 (01/24) WBC 5.4 (01/23) Temp 98.5 Ht 185.42cm Wt 67.73kg Trough 01/24 at 0930 15.2 A/P: Will continue same dose of vanco 1gm IVPB q8h for today. Next dose due today at 1800. If renal function or condition were to become unstable, will reorder labs/reshedule regimen as appropriate. Will follow
--- NOTE | 2018-01-25 14:23 | NUR ---
Discharge paperwork completed. VSS. Personal belongings accounted for, list signed. Pt educational material reviewed, along with Rx, and discharge paperwork, discussed, signed and provided to Pt, copies placed in chart. Skin integrity and wound photos taken of scar tissue to left hip, sacrum, right buttocks, and wound on left buttocks. SBAR [facility]. All discharge concerns addressed at this time. No home medications to return. IV removed, intact. ID band removed. Pt assisted to dress. Report given to route vending machine servicer upon arrival. Pt safely transferred to [facility] and escorted to ambulance with route vending machine servicer. Will remove Pt from system shortly.
== END 2018-01-25 14:40 | DRG 570 ==
LOC: ER 15:29 → MED 20:05
PROVIDERS: ADMIT Internal Medicine; ATTEND Internal Medicine
PROC: 0JB90ZZ Excision of Buttock Subcutaneous Tissue and Fascia, Open Approach (ICD-10-PCS; principal; 2018-01-23)
DX: L03.317 Cellulitis of buttock (principal); L89.323 Pressure ulcer of left buttock, stage 3; G82.20 Paraplegia, unspecified; D68.59 Other primary thrombophilia; G35 Multiple sclerosis; Z99.3 Dependence on wheelchair; N31.9 Neuromuscular dysfunction of bladder, unspecified; G89.4 Chronic pain syndrome; Z79.891 Long term (current) use of opiate analgesic; F17.210 Nicotine dependence, cigarettes, uncomplicated; M24.50 Contracture, unspecified joint; Z87.440 Personal history of urinary (tract) infections; Z86.14 Personal history of Methicillin resistant Staphylococcus aureus infection; M19.012 Primary osteoarthritis, left shoulder; M19.011 Primary osteoarthritis, right shoulder; Z74.09 Other reduced mobility; M19.90 Unspecified osteoarthritis, unspecified site; E88.09 Other disorders of plasma-protein metabolism, not elsewhere classified; G40.909 Epilepsy, unspecified, not intractable, without status epilepticus
CPT/HCPCS: 36415; 70030-TC; 71045; 72192; 83605; 83735; 84100; 85025; 85651; 85730; 87040; 93005; A4663; G0378; J1170; J2405; J2543; J3370; J3475; J7030; Q0163

== ENCOUNTER 2022-04-27 15:53 | Emergency (ER) | payer BC, OTHER ==
[~2022-04-27] VITALS: Ht 182.9 cm; Wt 65.8 kg
[~2022-04-27 15:53] MED LIST changes: -ACID1TAB4 PO; -ASCO500C16 PO; +ASCO500C6 PO; +ENSURE PLUS; +GABA300C PO; -Gabapentin PO; +HYDR2TAB4 PO; -LACT-15 PO; +MULT-594 PO; -MULT1TAB73 PO; -OMEP20CA10 PO; +OXYC30TA2 PO; -OXYC60TA8 PO; -PIPE3.379 IV; -RXVAN IV; -SODI473S8 TP
--- NOTE | 2022-04-27 16:10 | NUR ---
Pt arrived in ED presenting c/o stage 2 on the sacral area. Wound is dry, no signs of infection, no exudates/discharges, pt is afebrile. Seen by Dr. Bell for MSE.
[2022-04-27 17:24] VITALS: BP 119/78
--- NOTE | 2022-04-27 17:24 | NUR ---
Patient discharged to home in stable condition. Written and verbal after care instructions given. Patient verbalizes understanding of instructions. Stressed follow up or return to ER for worsening s/s.
== END 2022-04-27 17:25 | disposition home or self-care (01) ==
LOC: ER 15:53
DX: Z48.00 Encounter for change or removal of nonsurgical wound dressing (principal); L89.159 Pressure ulcer of sacral region, unspecified stage; G35 Multiple sclerosis; G82.20 Paraplegia, unspecified; Z99.3 Dependence on wheelchair; Z98.890 Other specified postprocedural states; G40.909 Epilepsy, unspecified, not intractable, without status epilepticus; Z86.14 Personal history of Methicillin resistant Staphylococcus aureus infection; Z88.5 Allergy status to narcotic agent; R33.9 Retention of urine, unspecified; Z93.6 Other artificial openings of urinary tract status
CPT/HCPCS: A4663; A6209; A6213

== ENCOUNTER 2023-04-15 18:40 | Inpatient (IN) | payer MEDICARE, OTHER ==
[~2023-04-15] VITALS: Ht 170.2 cm; Wt 68.0 kg
[2023-04-15] MEDS ORDERED: PIPERACILLIN/TAZOBACTAM/D5W 50 ML IV ONE (19:43)
[2023-04-15] MEDS ORDERED: VANCOMYCIN IV 200 ML ONE (19:43)
[2023-04-15] MEDS ORDERED: HYDROMORPHONE 1 MG/1 ML DISP.SYRIN ONE ×2 (19:43→20:35)
[2023-04-15] MEDS ORDERED: HYDROMORPHONE 1 MG/1 ML DISP.SYRIN IV ONE ×2 (19:45→20:45)
[2023-04-15] MEDS ORDERED: PIPERACILLIN SODIUM/TAZOBACTAM 3.375 G in IV DEXTROSE 5% 50 ML IV ONE (19:45)
[2023-04-15] MEDS ORDERED: VANCOMYCIN IV 1,000 MG in IV DEXTROSE 5% 250 ML IV ONE (19:45)
[2023-04-15 19:58] LABS: BASOPHILS # (AUTO) 0.2 K/UL (0.0-0.2); BASOPHILS % (AUTO) 2.7 % (0.0-2.0); EOSINOPHILS # (AUTO) 0.2 K/uL (0.0-0.7); HEMATOCRIT 41.1 % (36.7-47.1); HEMOGLOBIN 13.5 g/dL (12.5-16.3); LYMPHOCYTES % (AUTO) 12.1 % (20.5-51.5); MEAN CORPUSCULAR HEMOGLOBIN 30.4 uug (23.8-33.4); MEAN CORPUSCULAR HGB CONC 33 g/dL (32.5-36.3); MEAN CORPUSCULAR VOLUME 92.2 fL (73.0-96.2); MONOCYTES # (AUTO) 0.6 K/uL (0.1-1.30); MONOCYTES % (AUTO) 7.2 % (0.0-11.0); NEUTROPHILS # (AUTO) 6.4 K/uL (1.8-8.9); PLATELET COUNT (AUTO) 359 K/uL (152-348); RED BLOOD CELL COUNT(AUTO) 4.45 MIL/uL (4.06-5.63); RED CELL DISTRIBUTION WIDTH 14.8 % (12.1-16.2); WHITE BLOOD COUNT (AUTO) 8.5 K/uL (3.6-10.2)
[2023-04-15 20:14] LABS: DIFFERENTIAL COMMENT 1
[2023-04-15 20:19] LABS: *BILIRUBIN,URIN NEGATIVE (NEGATIVE); *BLOOD, URINE 2+ (NEGATIVE); *CLARITY,URINE TURBID (CLEAR); *COLOR,URINE YELLOW (YELLOW); *KETONES,URINE NEGATIVE (NEGATIVE); *PROTEIN,URINE 1+ (NEGATIVE); LEUKOCYTE ESTERASE ,URINE TRACE (NEGATIVE); NITRITE, URINE NEGATIVE (NEGATIVE); PH,URINE 5.5 (5.0-8.0); UGLUCOSE NEGATIVE (NEGATIVE)
[2023-04-15 20:19] LABS: CALCIUM 8.9 mg/dL (8.5-10.1); CARBON DIOXIDE 30 mmol/L (21-32); CHLORIDE 102 mmol/L (98-107); CREATININE 0.7 mg/dL (0.6-1.3); GLUCOSE 120 mg/dL (74-106); POTASSIUM 4.7 mmol/L (3.5-5.1); SODIUM SERUM 137 mmol/L (136-145); UREA NITROGEN, BLOOD 19 mg/dL (7-18)
[2023-04-15 20:25] LABS: ALANINE AMINOTRANSFERASE 13 U/L (16-63); ALBUMIN 2.9 g/dL (3.4-5.0); ALKALINE PHOSPHATASE 116 U/L (50-136); ASPARTATE AMINOTRANSFERASE 19 U/L (15-37); BILIRUBIN,TOTAL 0.4 mg/dL (0.2-1.0)
[2023-04-15 20:33] LABS: BILIRUBIN,DIRECT 0.1 mg/dL (0.0-0.2)
[2023-04-15 20:36] LABS: BACTERIA,URINE MANY /HPF (NONE SEEN); RBC,URINE 50-80 /HPF (0-3)
[2023-04-15 20:48] LABS: SQUAMOUS EPITHELIAL CELL,UR MANY /HPF (NONE SEEN)
[2023-04-15] MEDS ORDERED: REMEDY ESSENTIAL ZINC PASTE 113 GM TP PRN (23:00)
[2023-04-15] MEDS ORDERED: ACETAMINOPHEN 325 MG TABLET PO PRN (23:00)
[2023-04-15] MEDS ORDERED: MAGNESIUM HYDROXIDE 30 ML LIQUID UDC PO PRN (23:00)
[2023-04-15] MEDS ORDERED: IV NS 1000 ML 1,000 ML IV PRN (23:00)
[2023-04-15] MEDS ORDERED: ONDANSETRON 4 MG/2 ML VIAL IV PRN (23:00)
[2023-04-15] MEDS ORDERED: TEMAZEPAM 15 MG CAPSULE PO PRN (23:00)
[2023-04-16] MEDS ORDERED: CEFEPIME HCL 1 G VIAL ONE (02:27)
[2023-04-16] MEDS ORDERED: HYDROMORPHONE 1 MG/1 ML DISP.SYRIN ONE ×2 (02:38→06:09)
[2023-04-16] MEDS: HYDROMORPHONE 1 MG/1 ML DISP.SYRIN IV PRN ×2 (02:41→06:16)
[2023-04-16] MEDS: CEFEPIME HCL 1 G in IV DEXTROSE 5% 50 ML IV SCH ×2 (02:41→13:59)
[2023-04-16] MEDS ORDERED: VANCOMYCIN IV 1,000 MG in IV DEXTROSE 5% 250 ML IV SCH (06:00)
[2023-04-16] MEDS ORDERED: VANCOMYCIN IV 200 ML ONE ×2 (06:07→21:10)
[2023-04-16] MEDS ORDERED: HYDROMORPHONE 1 MG/1 ML DISP.SYRIN IV PRN (06:25)
[2023-04-16 06:31] LABS: CALCIUM 8.6 mg/dL (8.5-10.1); CREATININE 0.9 mg/dL (0.6-1.3); MAGNESIUM 1.9 mg/dL (1.8-2.4); POTASSIUM 4.2 mmol/L (3.5-5.1)
[2023-04-16 06:43] LABS: BASOPHILS % (AUTO) 0.6 % (0.0-2.0); DIFFERENTIAL COMMENT 0; EOSINOPHILS # (AUTO) 0.2 K/uL (0.0-0.7); EOSINOPHILS % (AUTO) 4.2 % (0.0-7.0); HEMATOCRIT 34.7 % (36.7-47.1); HEMOGLOBIN 11.7 g/dL (12.5-16.3); LYMPHOCYTES # (AUTO) 1.6 K/uL (0.8-4.8); LYMPHOCYTES % (AUTO) 31.3 % (20.5-51.5); MEAN CORPUSCULAR HEMOGLOBIN 31.2 uug (23.8-33.4); MEAN CORPUSCULAR HGB CONC 34 g/dL (32.5-36.3); MEAN CORPUSCULAR VOLUME 92.7 fL (73.0-96.2); MONOCYTES # (AUTO) 0.7 K/uL (0.1-1.30); MONOCYTES % (AUTO) 13.7 % (0.0-11.0); NEUTROPHILS # (AUTO) 2.6 K/uL (1.8-8.9); NEUTROPHILS % (AUTO) 50.2 % (38.5-71.5); PLATELET COUNT (AUTO) 289 K/uL (152-348); RED BLOOD CELL COUNT(AUTO) 3.74 MIL/uL (4.06-5.63); RED CELL DISTRIBUTION WIDTH 14.5 % (12.1-16.2); WHITE BLOOD COUNT (AUTO) 5.3 K/uL (3.6-10.2)
[2023-04-16] MEDS: PANTOPRAZOLE SODIUM 40 MG TABLET.DR PO SCH (07:00)
[2023-04-16] MEDS ORDERED: PANTOPRAZOLE SODIUM 40 MG TABLET.DR PO ONE (07:38)
[2023-04-16] MEDS ORDERED: ASCORBIC ACID 500 MG TABLET ONE (09:05)
[2023-04-16] MEDS: ASCORBIC ACID 500 MG TABLET PO SCH (09:06)
[2023-04-16] MEDS: ZINC SULFATE 220 MG CAPSULE PO SCH (09:06)
[2023-04-16] MEDS ORDERED: GABAPENTIN 300 MG CAPSULE PO PRN (11:30)
[2023-04-16] MEDS ORDERED: ZOLPIDEM TARTRATE 5 MG PO PRN (11:30)
[2023-04-16] MEDS ORDERED: CALMOSEPTINE 113 GM OINTMENT TOP PRN (11:30)
[2023-04-16] MEDS ORDERED: HYDROCODONE/APAP 10-325 MG TABLET ONE (11:46)
[2023-04-16] MEDS: HYDROCODONE/APAP 10-325 MG TABLET PO PRN ×2 (11:53→21:24)
[2023-04-16 13:21] LABS: HIV-1 p24 ANTIGEN NON REACTIVE (NONREACTIVE); HIV-1/2 ANTIBODY NON REACTIVE (NONREACTIVE)
[2023-04-16] MEDS: BACLOFEN 20 MG TABLET PO SCH (13:46)
[2023-04-16] MEDS ORDERED: HYDROCODONE/APAP 10-325 MG TABLET PO PRN (19:00)
[2023-04-16 20:00] VITALS: BP 125/80; TEMP 98.2; O2SAT 100
[2023-04-16] MEDS: DOCUSATE SODIUM 100 MG CAPSULE PO SCH (21:24)
[2023-04-16] MEDS: VANCOMYCIN IV 1,000 MG in IV DEXTROSE 5% 250 ML IV SCH (21:25)
[2023-04-17] MEDS ORDERED: CEFEPIME HCL 1 G VIAL ONE (00:26)
[2023-04-17] MEDS: CEFEPIME HCL 1 G in IV DEXTROSE 5% 50 ML IV SCH ×2 (01:30→14:57)
[2023-04-17] MEDS: HYDROMORPHONE 1 MG/1 ML DISP.SYRIN IV PRN ×3 (01:38→23:32)
[2023-04-17 04:00] VITALS: BP 93/58; TEMP 97.9; O2SAT 99
[2023-04-17] MEDS: PANTOPRAZOLE SODIUM 40 MG TABLET.DR PO SCH (06:40)
[2023-04-17] MEDS: HYDROCODONE/APAP 10-325 MG TABLET PO PRN ×3 (06:40→21:27)
[2023-04-17 07:24] LABS: CALCIUM 8.5 mg/dL (8.5-10.1); CREATININE 0.8 mg/dL (0.6-1.3); POTASSIUM 4.4 mmol/L (3.5-5.1)
[2023-04-17] MEDS: ZINC SULFATE 220 MG CAPSULE PO SCH (09:11)
[2023-04-17] MEDS: BACLOFEN 20 MG TABLET PO SCH ×4 (09:11→16:30)
[2023-04-17] MEDS: ASCORBIC ACID 500 MG TABLET PO SCH (09:11)
[2023-04-17] MEDS: MULTIVIT, IRON, MIN NO. 8, FA TABLET PO SCH (09:12)
[2023-04-17] MEDS: VANCOMYCIN IV 1,000 MG in IV DEXTROSE 5% 250 ML IV SCH ×2 (11:00→21:19)
[2023-04-17 12:00] VITALS: BP 101/65; TEMP 97.8; O2SAT 96
[2023-04-17] MEDS: diphenhydrAMINE 25 MG CAP PO PRN (12:55)
[2023-04-17] MEDS: SODIUM HYPOCHLORITE 0.125% (QUARTER STRENGTH) 473 ML BOTTLE TP SCH (15:06)
[2023-04-17] MEDS: PROTEIN SUPPLEMENT (PROSTAT) 30 ML LIQUID PO SCH (17:15)
[2023-04-17] MEDS: ARGININE/GLUTAMINE/CALCIUM BMB 1 EACH POWD.PACK PO SCH (17:15)
[2023-04-17 20:38] VITALS: BP 111/67; TEMP 98.5; O2SAT 98
[2023-04-17] MEDS: DOCUSATE SODIUM 100 MG CAPSULE PO SCH (21:19)
[2023-04-18] MEDS: CEFEPIME HCL 1 G in IV DEXTROSE 5% 50 ML IV SCH ×2 (02:09→14:22)
[2023-04-18 04:50] VITALS: BP 109/69; TEMP 98.4; O2SAT 96
[2023-04-18] MEDS: PANTOPRAZOLE SODIUM 40 MG TABLET.DR PO SCH ×2 (06:31→06:37)
[2023-04-18] MEDS: HYDROMORPHONE 1 MG/1 ML DISP.SYRIN IV PRN ×4 (06:33→21:29)
[2023-04-18 07:43] LABS: BASOPHILS % (AUTO) 0.6 % (0.0-2.0); EOSINOPHILS # (AUTO) 0.2 K/uL (0.0-0.7); EOSINOPHILS % (AUTO) 3.7 % (0.0-7.0); HEMATOCRIT 33.4 % (36.7-47.1); HEMOGLOBIN 11.3 g/dL (12.5-16.3); LYMPHOCYTES # (AUTO) 1.2 K/uL (0.8-4.8); LYMPHOCYTES % (AUTO) 22.8 % (20.5-51.5); MEAN CORPUSCULAR HEMOGLOBIN 31.2 uug (23.8-33.4); MEAN CORPUSCULAR HGB CONC 34 g/dL (32.5-36.3); MEAN CORPUSCULAR VOLUME 92.4 fL (73.0-96.2); MONOCYTES # (AUTO) 0.6 K/uL (0.1-1.30); MONOCYTES % (AUTO) 11.6 % (0.0-11.0); NEUTROPHILS # (AUTO) 3.2 K/uL (1.8-8.9); NEUTROPHILS % (AUTO) 61.3 % (38.5-71.5); PLATELET COUNT (AUTO) 250 K/uL (152-348); RED BLOOD CELL COUNT(AUTO) 3.62 MIL/uL (4.06-5.63); RED CELL DISTRIBUTION WIDTH 14.5 % (12.1-16.2); WHITE BLOOD COUNT (AUTO) 5.2 K/uL (3.6-10.2)
[2023-04-18 07:46] LABS: DIFFERENTIAL COMMENT 1
[2023-04-18 08:08] LABS: CARBON DIOXIDE 30 mmol/L (21-32); CHLORIDE 107 mmol/L (98-107); CREATININE 0.6 mg/dL (0.6-1.3); GLUCOSE 83 mg/dL (74-106); POTASSIUM 3.7 mmol/L (3.5-5.1); SODIUM SERUM 141 mmol/L (136-145); UREA NITROGEN, BLOOD 10 mg/dL (7-18)
[2023-04-18] MEDS: SODIUM HYPOCHLORITE 0.125% (QUARTER STRENGTH) 473 ML BOTTLE TP SCH (09:37)
[2023-04-18] MEDS: BACLOFEN 20 MG TABLET PO SCH ×3 (09:37→16:22)
[2023-04-18] MEDS: ZINC SULFATE 220 MG CAPSULE PO SCH (09:37)
[2023-04-18] MEDS: ASCORBIC ACID 500 MG TABLET PO SCH (09:37)
[2023-04-18] MEDS: MULTIVIT, IRON, MIN NO. 8, FA TABLET PO SCH (09:37)
[2023-04-18] MEDS: ARGININE/GLUTAMINE/CALCIUM BMB 1 EACH POWD.PACK PO SCH ×2 (09:38→16:22)
[2023-04-18] MEDS: VANCOMYCIN IV 1,250 MG in IV DEXTROSE 5% 250 ML IV SCH ×2 (09:38→14:24)
[2023-04-18] MEDS: PROTEIN SUPPLEMENT (PROSTAT) 30 ML LIQUID PO SCH ×2 (09:38→16:22)
[2023-04-18 11:52] VITALS: BP 121/75; TEMP 98.7; O2SAT 97
[2023-04-18] MEDS: diphenhydrAMINE 25 MG CAP PO PRN (12:32)
[2023-04-18 14:01] LABS: THYROID STIMULATING HORMONE 1.496 mIU/mL (0.358-3.740)
[2023-04-18 16:34] VITALS: BP 115/52; TEMP 98.8; O2SAT 97
[2023-04-18 20:43] VITALS: BP 108/58; TEMP 98.4; O2SAT 98
[2023-04-18] MEDS: DOCUSATE SODIUM 100 MG CAPSULE PO SCH (21:19)
[2023-04-19] MEDS: CEFEPIME HCL 1 G in IV DEXTROSE 5% 50 ML IV SCH (02:07)
[2023-04-19] MEDS: HYDROMORPHONE 1 MG/1 ML DISP.SYRIN IV PRN ×2 (04:08→11:01)
[2023-04-19 04:36] VITALS: BP 119/66; TEMP 98.2; O2SAT 98
[2023-04-19] MEDS: PANTOPRAZOLE SODIUM 40 MG TABLET.DR PO SCH (06:15)
[2023-04-19 07:41] LABS: BASOPHILS % (AUTO) 0.8 % (0.0-2.0); EOSINOPHILS # (AUTO) 0.2 K/uL (0.0-0.7); EOSINOPHILS % (AUTO) 4.4 % (0.0-7.0); HEMATOCRIT 35.9 % (36.7-47.1); HEMOGLOBIN 11.9 g/dL (12.5-16.3); LYMPHOCYTES # (AUTO) 1.3 K/uL (0.8-4.8); LYMPHOCYTES % (AUTO) 25.6 % (20.5-51.5); MEAN CORPUSCULAR HEMOGLOBIN 30.7 uug (23.8-33.4); MEAN CORPUSCULAR HGB CONC 33 g/dL (32.5-36.3); MEAN CORPUSCULAR VOLUME 92.7 fL (73.0-96.2); MONOCYTES # (AUTO) 0.5 K/uL (0.1-1.30); MONOCYTES % (AUTO) 10.6 % (0.0-11.0); NEUTROPHILS # (AUTO) 2.9 K/uL (1.8-8.9); NEUTROPHILS % (AUTO) 58.6 % (38.5-71.5); PLATELET COUNT (AUTO) 288 K/uL (152-348); RED BLOOD CELL COUNT(AUTO) 3.87 MIL/uL (4.06-5.63); RED CELL DISTRIBUTION WIDTH 14.5 % (12.1-16.2)
[2023-04-19 07:51] LABS: CALCIUM 8.6 mg/dL (8.5-10.1); CREATININE 0.8 mg/dL (0.6-1.3); POTASSIUM 4.3 mmol/L (3.5-5.1)
[2023-04-19 08:06] LABS: DIFFERENTIAL COMMENT 1
[2023-04-19] MEDS: ASCORBIC ACID 500 MG TABLET PO SCH (09:08)
[2023-04-19] MEDS: ZINC SULFATE 220 MG CAPSULE PO SCH (09:08)
[2023-04-19] MEDS: MULTIVIT, IRON, MIN NO. 8, FA TABLET PO SCH (09:08)
[2023-04-19] MEDS: BACLOFEN 20 MG TABLET PO SCH ×2 (09:08→12:22)
[2023-04-19] MEDS: ARGININE/GLUTAMINE/CALCIUM BMB 1 EACH POWD.PACK PO SCH (09:20)
[2023-04-19] MEDS: PROTEIN SUPPLEMENT (PROSTAT) 30 ML LIQUID PO SCH (09:21)
[2023-04-19] MEDS: SODIUM HYPOCHLORITE 0.125% (QUARTER STRENGTH) 473 ML BOTTLE TP SCH (09:21)
[2023-04-19] MEDS: HYDROCODONE/APAP 10-325 MG TABLET PO PRN (09:29)
[2023-04-19] MEDS ORDERED: CEFEPIME HCL 1 G in IV DEXTROSE 5% 50 ML IV SCH (10:00)
[2023-04-19] MEDS ORDERED: SOD FERRIC GLUC COMPLX/SUCROSE 125 MG in IV NORMAL SALINE 100 ML IV ONE (10:30)
[2023-04-19] MEDS ORDERED: NUTR1PAC14 PO (10:50)
[2023-04-19] MEDS ORDERED: ASCO500T21 PO (10:50)
[2023-04-19] MEDS ORDERED: PROT30LI PO (10:50)
[2023-04-19] MEDS ORDERED: SODI473S8 TP (10:50)
[2023-04-19] MEDS ORDERED: Multivit, Iron, Min No. 8, Fa PO (10:50)
[2023-04-19] MEDS ORDERED: ACID1TAB4 PO (10:50)
[2023-04-19] MEDS ORDERED: CEFE1PIG3 IV (10:50)
[2023-04-19] MEDS ORDERED: ZINC1CAP3 PO (10:50)
[2023-04-19] MEDS ORDERED: DOCU-141 PO (10:50)
[2023-04-19] MEDS ORDERED: PANT40TA49 PO (10:50)
[2023-04-19] MEDS ORDERED: ACET325T53 PO (10:50)
[2023-04-19] MEDS ORDERED: MAGN400O6 PO (10:50)
[2023-04-19] MEDS ORDERED: TEMA15CA PO (10:50)
[2023-04-19 12:02] VITALS: BP 105/67; TEMP 97.9; O2SAT 98
[2023-04-19] MEDS: diphenhydrAMINE 25 MG CAP PO PRN (12:22)
== END 2023-04-19 14:20 | DRG 593 ==
LOC: ER 18:40 → UNDOADMIN 23:10 → TRANSITION 23:10 → MEDSURG3 04-16 17:20
PROVIDERS: ADMIT Nurse Practitioner Acute Care; ATTEND Nurse Practitioner Acute Care
DX: L89.324 Pressure ulcer of left buttock, stage 4 (principal); D68.59 Other primary thrombophilia; M46.28 Osteomyelitis of vertebra, sacral and sacrococcygeal region; N39.0 Urinary tract infection, site not specified; G82.20 Paraplegia, unspecified; F11.20 Opioid dependence, uncomplicated; Z16.24 Resistance to multiple antibiotics; L89.154 Pressure ulcer of sacral region, stage 4; L08.9 Local infection of the skin and subcutaneous tissue, unspecified; G35 Multiple sclerosis; M19.012 Primary osteoarthritis, left shoulder; M19.011 Primary osteoarthritis, right shoulder; Z53.20 Procedure and treatment not carried out because of patient's decision for unspecified reasons; D50.9 Iron deficiency anemia, unspecified; N40.0 Benign prostatic hyperplasia without lower urinary tract symptoms; N20.0 Calculus of kidney; K56.41 Fecal impaction; G89.4 Chronic pain syndrome; T40.2X5A Adverse effect of other opioids, initial encounter; Y92.099 Unspecified place in other non-institutional residence as the place of occurrence of the external cause; Z80.0 Family history of malignant neoplasm of digestive organs; Z86.14 Personal history of Methicillin resistant Staphylococcus aureus infection; Z99.3 Dependence on wheelchair; G40.909 Epilepsy, unspecified, not intractable, without status epilepticus; N21.0 Calculus in bladder; B96.4 Proteus (mirabilis) (morganii) as the cause of diseases classified elsewhere
CPT/HCPCS: 36415; 71045; 83550; 83605; 83735; 84100; 84153; 84443; 85025; 85651; 85730; 86140; 86803; 87040; 87806; A4606; A4663; G0378; J0692; J1170; J2543; J2916; J3370; J7040; J7050; Q0163

== ENCOUNTER 2024-02-28 18:35 | Inpatient (IN) | payer MEDICARE, OTHER ==
[~2024-02-28] VITALS: Ht 182.9 cm; Wt 62.6 kg
[~2024-02-28 18:35] MED LIST changes: +ASCO500C18 PO; -ASCO500C6 PO; -Acetaminophen PO; +BISA10SU12 RC; +CHOL10005 PO; -DIPH25CA83 PO; +DOCU100C36 PO; -Docusate Sodium PO; -ENSURE PLUS; -HYDR2TAB4 PO; +LACT1TAB6 PO; +Lactose-Free Food PO; -MAGN400O6 PO; -MENT71OI TOP; -MULT-594 PO; +NUTR1PAC14 PO; +SODI473S8 TP; +TEMA15CA PO; -ZINC220C6 PO; -Zolpidem Tartrate PO
[2024-02-28 19:21] LABS: BASOPHILS % (AUTO) 0.5 % (0.0-2.0); EOSINOPHILS # (AUTO) 0.2 K/uL (0.0-0.7); EOSINOPHILS % (AUTO) 2.5 % (0.0-7.0); HEMATOCRIT 30.3 % (36.7-47.1); HEMOGLOBIN 10.4 g/dL (12.5-16.3); LYMPHOCYTES # (AUTO) 0.8 K/uL (0.8-4.8); LYMPHOCYTES % (AUTO) 12.4 % (20.5-51.5); MEAN CORPUSCULAR HEMOGLOBIN 31.5 uug (23.8-33.4); MEAN CORPUSCULAR HGB CONC 34 g/dL (32.5-36.3); MEAN CORPUSCULAR VOLUME 91.9 fL (73.0-96.2); MONOCYTES # (AUTO) 0.6 K/uL (0.1-1.30); MONOCYTES % (AUTO) 8.6 % (0.0-11.0); NEUTROPHILS # (AUTO) 5.1 K/uL (1.8-8.9); PLATELET COUNT (AUTO) 339 K/uL (152-348); RED BLOOD CELL COUNT(AUTO) 3.29 MIL/uL (4.06-5.63); RED CELL DISTRIBUTION WIDTH 14.9 % (12.1-16.2); WHITE BLOOD COUNT (AUTO) 6.8 K/uL (3.6-10.2)
[2024-02-28 19:28] LABS: DIFFERENTIAL COMMENT 1
[2024-02-28 19:32] LABS: CALCIUM 8.9 mg/dL (8.5-10.1); CREATININE 1.1 mg/dL (0.6-1.3)
[2024-02-28 19:38] LABS: ALBUMIN 2.2 g/dL (3.4-5.0); BILIRUBIN,TOTAL 0.1 mg/dL (0.2-1.0); TOTAL PROTEIN, SERUM 7.5 g/dL (6.4-8.2)
[2024-02-28] MEDS ORDERED: PIPERACILLIN/TAZOBACTAM/D5W 50 ML IV ONE (19:40)
[2024-02-28 20:27] LABS: *BILIRUBIN,URIN NEGATIVE (NEGATIVE); *BLOOD, URINE 1+ (NEGATIVE); *CLARITY,URINE CLOUDY (CLEAR); *COLOR,URINE YELLOW (YELLOW); *KETONES,URINE NEGATIVE (NEGATIVE); *PROTEIN,URINE 2+ (NEGATIVE); LEUKOCYTE ESTERASE ,URINE 2+ (NEGATIVE); NITRITE, URINE POSITIVE (NEGATIVE); PH,URINE >=9.0 (5.0-8.0); UGLUCOSE NEGATIVE (NEGATIVE)
[2024-02-28 20:35] LABS: BACTERIA,URINE MANY /HPF (NONE SEEN)
[2024-02-28] MEDS: PIPERACILLIN SODIUM/TAZOBACTAM 3.375 G in IV DEXTROSE 5% 50 ML IV ONE (21:45)
[2024-02-28] MEDS: IV NS 1000 ML 1,000 ML IV ONE (21:45)
[2024-02-28] MEDS ORDERED: KETOROLAC TROMETHAMINE 30 MG INJ ONE (22:48)
[2024-02-28] MEDS: KETOROLAC TROMETHAMINE 30 MG INJ IVP ONE (22:50)
[2024-02-28] MEDS ORDERED: REMEDY ESSENTIAL ZINC PASTE 113 GM TP PRN (23:00)
[2024-02-28] MEDS ORDERED: ONDANSETRON 4 MG/2 ML VIAL IV PRN (23:00)
[2024-02-28] MEDS ORDERED: MAGNESIUM HYDROXIDE 30 ML LIQUID UDC PO PRN (23:00)
[2024-02-29 02:00] VITALS: BP 98/76; TEMP 98.9; O2SAT 98
[2024-02-29] MEDS: ENOXAPARIN SODIUM 40 MG/0.4 ML DISP.SYRIN SQ SCH (02:30)
[2024-02-29] MEDS: ACETAMINOPHEN 325 MG TABLET PO PRN (02:34)
[2024-02-29 06:00] VITALS: BP 91/58; TEMP 97.9; O2SAT 95
[2024-02-29] MEDS: PANTOPRAZOLE SODIUM 40 MG TABLET.DR PO SCH (06:37)
[2024-02-29 06:58] LABS: BASOPHILS % (AUTO) 0.4 % (0.0-2.0); EOSINOPHILS # (AUTO) 0.2 K/uL (0.0-0.7); EOSINOPHILS % (AUTO) 2.9 % (0.0-7.0); HEMATOCRIT 27.1 % (36.7-47.1); HEMOGLOBIN 9.6 g/dL (12.5-16.3); LYMPHOCYTES % (AUTO) 15.9 % (20.5-51.5); MEAN CORPUSCULAR HEMOGLOBIN 32.6 uug (23.8-33.4); MEAN CORPUSCULAR HGB CONC 35 g/dL (32.5-36.3); MEAN CORPUSCULAR VOLUME 92.3 fL (73.0-96.2); MONOCYTES # (AUTO) 0.3 K/uL (0.1-1.30); MONOCYTES % (AUTO) 5.6 % (0.0-11.0); NEUTROPHILS # (AUTO) 4.7 K/uL (1.8-8.9); NEUTROPHILS % (AUTO) 75.2 % (38.5-71.5); PLATELET COUNT (AUTO) 303 K/uL (152-348); RED BLOOD CELL COUNT(AUTO) 2.94 MIL/uL (4.06-5.63); WHITE BLOOD COUNT (AUTO) 6.2 K/uL (3.6-10.2)
[2024-02-29 07:22] LABS: DIFFERENTIAL COMMENT 1
[2024-02-29 07:29] LABS: CALCIUM 8.2 mg/dL (8.5-10.1); CREATININE 1.1 mg/dL (0.6-1.3); MAGNESIUM 1.8 mg/dL (1.8-2.4); PHOSPHOROUS 3.4 mg/dL (2.5-4.9); POTASSIUM 3.8 mmol/L (3.5-5.1)
[2024-02-29] MEDS: CEFTRIAXONE 1 G in IV DEXTROSE 5% 50 ML IV SCH (08:14)
[2024-02-29 09:08] LABS: THYROID STIMULATING HORMONE 2.454 mIU/mL (0.358-3.740)
[2024-02-29 11:57] VITALS: BP 97/56; TEMP 98.3; O2SAT 96
[2024-02-29] MEDS: SODIUM HYPOCHLORITE 0.125% (QUARTER STRENGTH) 473 ML BOTTLE TP SCH (12:47)
[2024-02-29 15:06] LABS: HIV-1 p24 ANTIGEN NON REACTIVE (NONREACTIVE); HIV-1/2 ANTIBODY NON REACTIVE (NONREACTIVE)
[2024-02-29 15:36] VITALS: BP 90/58; TEMP 98; O2SAT 98
[2024-02-29] MEDS ORDERED: BACLOFEN 20 MG TABLET PO SCH (15:45)
[2024-02-29] MEDS ORDERED: OXYCODONE HCL 5 MG TABLET PO SCH (15:45)
[2024-02-29] MEDS ORDERED: BISACODYL 10 MG SUPP.RECT RC PRN (15:45)
[2024-02-29] MEDS ORDERED: OXYCODONE HCL 5 MG TABLET PO ONE (16:30)
[2024-02-29] MEDS ORDERED: BACLOFEN 20 MG TABLET PO ONE (16:30)
[2024-02-29] MEDS ORDERED: GABAPENTIN 300 MG CAPSULE PO SCH (17:00)
[2024-02-29] MEDS ORDERED: Medication Not On Formulary EA (Lactobacillus Acidophilus (Acidophilus) 1 EACH) PO SCH (17:00)
[2024-02-29] MEDS: BACLOFEN 20 MG TABLET PO SCH (17:21)
[2024-02-29] MEDS: ENSURE ENLIVE (VAN) 240 ML LIQUID PO SCH (17:22)
[2024-02-29] MEDS: ALPRAZOLAM 0.5 MG TABLET PO SCH (17:22)
[2024-02-29] MEDS: ACIDOPHILUS/BULGARICUS CHEW TAB PO SCH (17:22)
[2024-02-29] MEDS: GABAPENTIN 300 MG CAPSULE PO SCH (17:22)
[2024-02-29] MEDS: ARGININE/GLUTAMINE/CALCIUM BMB 1 EACH POWD.PACK PO SCH (17:22)
[2024-02-29 20:00] VITALS: BP 99/58; TEMP 99.9; O2SAT 97
[2024-02-29] MEDS: DOCUSATE SODIUM 100 MG CAPSULE PO SCH (20:13)
[2024-02-29] MEDS: OXYCODONE HCL 5 MG TABLET PO PRN (20:13)
[2024-02-29] MEDS ORDERED: TEMAZEPAM 15 MG CAPSULE PO SCH (21:00)
[2024-02-29] MEDS ORDERED: CIPROFLOXACIN HCL 250 MG TABLET ONE (21:53)
[2024-02-29] MEDS: CIPROFLOXACIN HCL 250 MG TABLET PO SCH (21:57)
[2024-02-29] MEDS ORDERED: CEFTRIAXONE 1 G in IV DEXTROSE 5% 50 ML IV SCH (23:00)
[2024-02-29 23:10] VITALS: BP 91/48; TEMP 98.3; O2SAT 95
[2024-03-01 05:41] VITALS: BP 96/47; TEMP 97.5; O2SAT 96
[2024-03-01] MEDS ORDERED: Medication Not On Formulary EA ([Lactose-Free Food] 240 ML) PO SCH (09:00)
[2024-03-01] MEDS ORDERED: Medication Not On Formulary EA (Cholecalciferol (Vitamin D3) (Vitamin D3) 25 MCG) PO SCH (09:00)
[2024-03-01] MEDS ORDERED: SODIUM HYPOCHLORITE 0.125% (QUARTER STRENGTH) 473 ML BOTTLE TP SCH (09:00)
[2024-03-01] MEDS ORDERED: Medication Not On Formulary EA (Ascorbic Acid (Vitamin C) 500 MG) PO SCH (09:00)
[2024-03-01 10:09] LABS: HEPATITIS B CORE AB, TOTAL Positive (Negative); HEPATITIS B SURFACE AG Negative (Negative); HEPATITIS C VIRUS ANTIBODY Non Reactive (Non Reactive)
[2024-03-01] MEDS: CHOLECALCIFEROL 1,000 UNIT TABLET PO SCH (10:09)
[2024-03-01] MEDS: ASCORBIC ACID 500 MG TABLET PO SCH (10:12)
[2024-03-01] MEDS: NICOTINE 14 MG/24HR PATCH TD SCH (10:17)
[2024-03-01 11:38] VITALS: BP 90/42; TEMP 97.6; O2SAT 97
[2024-03-01 15:02] VITALS: BP 102/58; TEMP 98.4; O2SAT 97
[2024-03-01] MEDS: ZINC SULFATE 220 MG CAPSULE PO SCH (16:10)
[2024-03-01] MEDS: diphenhydrAMINE 50 MG/1 ML VIAL IV PRN (16:10)
[2024-03-01] MEDS: HYDROMORPHONE 2 MG/1 ML DISP.SYRIN IV PRN (16:12)
[2024-03-01 21:00] VITALS: BP 99/54; TEMP 98.4; O2SAT 95
[2024-03-01] MEDS: GABAPENTIN 300 MG CAPSULE PO SCH (21:13)
[2024-03-01] MEDS: ALPRAZOLAM 0.5 MG TABLET PO SCH (21:14)
[2024-03-01 23:29] VITALS: BP 100/52; TEMP 98.4; O2SAT 95
[2024-03-02 05:13] VITALS: BP 93/49; TEMP 98; O2SAT 95
[2024-03-02 07:41] LABS: BASOPHILS % (AUTO) 0.2 % (0.0-2.0); EOSINOPHILS # (AUTO) 0.1 K/uL (0.0-0.7); EOSINOPHILS % (AUTO) 1.2 % (0.0-7.0); HEMATOCRIT 32.3 % (36.7-47.1); HEMOGLOBIN 10.7 g/dL (12.5-16.3); LYMPHOCYTES # (AUTO) 1.1 K/uL (0.8-4.8); LYMPHOCYTES % (AUTO) 14.2 % (20.5-51.5); MEAN CORPUSCULAR HEMOGLOBIN 31.3 uug (23.8-33.4); MEAN CORPUSCULAR HGB CONC 33 g/dL (32.5-36.3); MEAN CORPUSCULAR VOLUME 93.9 fL (73.0-96.2); MONOCYTES # (AUTO) 0.6 K/uL (0.1-1.30); MONOCYTES % (AUTO) 7.1 % (0.0-11.0); NEUTROPHILS # (AUTO) 6.1 K/uL (1.8-8.9); NEUTROPHILS % (AUTO) 77.3 % (38.5-71.5); PLATELET COUNT (AUTO) 309 K/uL (152-348); RED BLOOD CELL COUNT(AUTO) 3.43 MIL/uL (4.06-5.63); RED CELL DISTRIBUTION WIDTH 14.7 % (12.1-16.2); WHITE BLOOD COUNT (AUTO) 7.9 K/uL (3.6-10.2)
[2024-03-02 08:11] LABS: DIFFERENTIAL COMMENT 1
[2024-03-02] MEDS: FERROUS SULFATE 325 MG TABEC PO SCH (08:20)
[2024-03-02 08:22] LABS: PHOSPHOROUS 2.8 mg/dL (2.5-4.9)
[2024-03-02 08:31] LABS: CALCIUM 8.6 mg/dL (8.5-10.1); MAGNESIUM 2.2 mg/dL (1.8-2.4)
[2024-03-02 12:00] VITALS: BP 114/63; TEMP 96.6; O2SAT 99
[2024-03-02] MEDS ORDERED: CIPR250T4 PO (12:06)
== END 2024-03-02 15:49 | DRG 689 ==
LOC: ER 18:35 → MEDSURG3 22:57
PROVIDERS: ADMIT Nurse Practitioner Family; ATTEND Internal Medicine
DX: N39.0 Urinary tract infection, site not specified (principal); L89.154 Pressure ulcer of sacral region, stage 4; L89.324 Pressure ulcer of left buttock, stage 4; G82.20 Paraplegia, unspecified; E44.0 Moderate protein-calorie malnutrition; F11.20 Opioid dependence, uncomplicated; D68.59 Other primary thrombophilia; R31.9 Hematuria, unspecified; G35 Multiple sclerosis; F17.210 Nicotine dependence, cigarettes, uncomplicated; K56.41 Fecal impaction; M19.012 Primary osteoarthritis, left shoulder; M19.011 Primary osteoarthritis, right shoulder; N20.0 Calculus of kidney; N40.0 Benign prostatic hyperplasia without lower urinary tract symptoms; N31.9 Neuromuscular dysfunction of bladder, unspecified; G40.909 Epilepsy, unspecified, not intractable, without status epilepticus; G89.4 Chronic pain syndrome; F41.9 Anxiety disorder, unspecified; F32.A Depression, unspecified; D64.9 Anemia, unspecified; N21.0 Calculus in bladder; R62.7 Adult failure to thrive; Z99.3 Dependence on wheelchair; Z87.440 Personal history of urinary (tract) infections; Z86.14 Personal history of Methicillin resistant Staphylococcus aureus infection; Z79.899 Other long term (current) drug therapy; Z88.5 Allergy status to narcotic agent
CPT/HCPCS: 36415; 83550; 83605; 83735; 84100; 84153; 84443; 85025; 86704; 86803; 87040; 87340; 87806; A6213; G0378; J0696; J1171; J1200; J1650; J1885; J2543; J7040